=== PATIENT | male | born 1950 | race Caucasian/White ===

== ENCOUNTER 2017-09-04 10:44 | Emergency (ER) | payer OTHER ==
[2017-09-04] MEDS ORDERED: MECLIZINE 25 MG TABLET PO ONE (11:19)
[2017-09-04] MEDS ORDERED: DIAZEPAM 5MG/ML **10ML VIAL IVP ONE ×2 (11:19→12:39)
--- NOTE | 2017-09-04 11:24 | Emergency Department Record ---
History of Present Illness - General Chief Complaint: Dizziness Stated Complaint: DIZZY Time Seen by Provider: 09/04/17 11:04 Source: Patient Mode of Arrival: Ambulatory Limitations: No limitations - History of Present Illness Initial Comments: The patient is here due to having "dizziness" for 2 weeks off and on. The symptoms seem to be slowly worsening. The patient describes it as feeling like the room is spinning which is worse with any head movement or standing up. He feels like his balance is off at times and he did fall and bump his head last week. The patient has no hx of similar problems and no trouble with his speech, any focal arm or leg numbness, or weakness or visual changes.The patient has had vague chest pressure for a couple of hours but it has basically gone now. There has been no SOB, HUMA, or sweating. He also has no hx of MCDONALD or CP with exertion. MD Complaint: Dizziness Onset/Timin -: Week(s) Timing: Unsure Description: "Room spinning" History of Same: No History of Trauma: No Severity: Moderate Improves With: Nothing Worsens With: Nothing Associated Symptoms: Denies other symptoms - [place] Coma Scale Eye Response: (4) Open spontaneously Motor Response: (6) Obeys commands Verbal Response: (5) Oriented [place] Total: 15 - Related Data Home Medications Medication Instructions Recorded Confirmed Last Taken Allopurinol [Zyloprim] 300 mg PO ASDIR 09/04/17 09/04/17 09/04/17 Aspirin 325 mg PO DAILY 09/04/17 09/04/17 09/04/17 Indomethacin [Indocin] 50 mg PO TID 09/04/17 09/04/17 09/04/17 Lamotrigine [Lamictal (Blue)] 25 mg PO ASDIR 09/04/17 09/04/17 09/04/17 Multivitamin [Multiple Vitamins] 1 each PO DAILY 09/04/17 09/04/17 09/04/17 Sertraline HCl [Zoloft] 100 mg PO DAILY 09/04/17 09/04/17 09/04/17 Trazodone HCl 150 mg PO QHS 09/04/17 09/04/17 09/04/17 Zolpidem Tartrate [Ambien] 10 mg PO QHS 09/04/17 09/04/17 09/03/17 Previous Rx's Medication Instructions Recorded Diazepam [Valium] 2 mg PO TID #15 tab 09/04/17 Meclizine HCl [Antivert] 25 mg PO Q8H #21 tablet 09/04/17 Allergies Allergy/AdvReac Type Severity Reaction Status Date / Time No Known Drug Allergies Allergy Verified 09/04/17 10:50 Travel Screening - Travel/Exposure Within Last 30 Days Have you traveled within the last 30 days?: No - Travel/Exposure Within Last Year Have you traveled outside the [place] in the last year?: No - Additonal Travel Details Have you been exposed to anyone with a communicable illness?: No - Travel Symptoms Symptom Screening: None Review of Systems Constitutional: Denies: Chills, Fever Eyes: Denies: Eye discharge ENT: Denies: Congestion Respiratory: Denies: Cough, Dyspnea Cardiovascular: Denies: Arrhythmia Past Medical History - SOCIAL HISTORY Smoking Status: Current every day smoker Alcohol Use: None Drug Use: None - RESPIRATORY Hx Respiratory Disorders: No - CARDIOVASCULAR Hx Cardio Disorders: No - NEURO Hx Neuro Disorders: No - GI Hx GI Disorders: No - Hx Genitourinary Disorders: No - ENDOCRINE Hx Endocrine Disorders: No - MUSCULOSKELETAL Hx Musculoskeletal Disorders: Yes Hx Gout: Yes - PSYCH Hx Psych Problems: No - HEMATOLOGY/ONCOLOGY Hx Hematology/Oncology Disorders: No Family Medical History Any Significant Family History?: Yes Hx Dementia: Brother/Sister Hx Heart Disease: Father, Brother/Sister Hx Stroke: Mother Physical Exam - General General Appearance: Alert, Oriented x3, Cooperative, No acute distress - Head Head exam: Atraumatic, Normocephalic, Normal inspection - Eye Eye exam: Normal appearance, PERRL, EOMI, Nystagmus (laterally L>R.) - ENT Throat exam: Normal inspection. negative: Tonsillar erythema, Tonsillar exudate - Neck Neck exam: Normal inspection, Full ROM, Other (Neg for bruits bilaterally.). negative: Lymphadenopathy, Meningismus, Tenderness - Respiratory Respiratory exam: Normal lung sounds bilaterally. negative: Respiratory distress - Cardiovascular Cardiovascular Exam: Regular rate, Normal rhythm, Normal heart sounds - GI/Abdominal GI/Abdominal exam: Soft, Normal bowel sounds. negative: Tenderness - Extremities Extremities exam: Normal inspection, Full ROM, Normal capillary refill. negative: Tenderness - Back Back exam: Reports: Normal inspection - Neurological Neurological exam: Alert, Normal gait, Oriented X3, Reflexes normal, Other (Neg Drift and [place].). negative: Abnormal gait, Altered, Motor sensory deficit Course Vital Signs 09/04/17 10:51 Pulse Rate 74 Respiratory 18 Rate Blood Pressure 128/85 Pulse Ox 97 - Reevaluation(s) Reevaluation #1: The patient is doing better at this time and is 100% improved. He has no dizziness or visual changes and is able to get up and walk with no difficulty. I did discuss the issues with the patient regarding the CP which has now resolved. His cardiac workup has been all normal and the vague discomfort he had has resolved. Due to the etiology being unclear I did recommend hospital admission. The patient is refusing that plan and wants to go home. I did explain to him that the risks of leaving are that the patient could go home and have an CT, stroke, become disabled and even . The patient understands and accepts the risks. He was told to return to the ER at any time for recheck. 09/04/17 13:18 Medical Decision Making - Data Complexity MDM Data: Labs Ordered and/or Reviewed, X-Ray Ordered and/or Reviewed, EKG Ordered and/or Reviewed - Lab Data Result diagrams: 09/04/17 11:10 09/04/17 11:10 - EKG Data -: EKG Interpreted by Me EKG: No Acute Changes, Normal EKG - Radiology Data Radiology results: Report reviewed (Head CT: No acute changes, Chronic changes bilaterally. ) Disposition Disposition: Discharge Clinical Impression: Vertigo Disposition: Home, Self-Care Condition: (2) Stable Instructions: Dizziness (ED) Additional Instructions: Please take the Antivert and Valium as directed and see your family doctor next week for recheck. Return to the ER for any worsening symptoms, or any pain, trouble breathing, shortness of breath or sweating. Prescriptions: Diazepam [Valium] 2 mg PO TID #15 tab Meclizine HCl [Antivert] 25 mg PO Q8H #21 tablet Forms: Patient Portal Access Time of Disposition: 13:23 Quality - Quality Measures Quality Measures: N/A - Blood Pressure Screening View Details: Yes Does Patient Have Any of the Following: No Blood Pressure Classification: Pre-Hypertensive BP Reading Systolic Measurement: 128 Diastolic Measurement: 85 Screening for High Blood Pressure: < Pre-Hypertensive BP, F/U Documented > [ G8950] Pre-Hypertensive Follow-up Interventions: Referral to alternative/primary care provider.
[2017-09-04 11:32] LABS: BASO % 0.5 % (0-6); GRAN % 60.3 % (47-80); HEMATOCRIT 43.9 % (42.0-52.0); HEMOGLOBIN 15.5 gm/dl (14.0-18.0); LYMPH % 31.9 % (16-45); MEAN CELL VOLUME 86.6 fl (81-97); MEAN CORPUSCULAR HEMOGLOBIN 30.6 pg (27-33); MEAN CORPUSCULAR HGB CONC 35.3 g/dl (32-36); MONO % 6.3 % (0-9); PLATELET COUNT 224 K/uL (130-400); RED BLOOD COUNT 5.07 M/uL (4.40-5.70); RED CELL DISTRIBUTION WIDTH 12.5 % (11.5-14.5); WHITE BLOOD COUNT W/O DIFF 6.2 K/uL (4.2-12.2)
[2017-09-04 11:43] LABS: BLOOD UREA NITROGEN 15 mg/dL (8-23); CREATININE 0.8 mg/dL (0.7-1.2); EST GLOMERULAR FILTRATION RATE > 60 mL/min
[2017-09-04 11:46] LABS: GLUCOSE,RANDOM 109 mg/dL (74-109)
[2017-09-04 11:47] LABS: INR 1.1; PARTIAL THROMBOPLASTIN TIME 28.3 SECONDS (24.5-39.1)
[2017-09-04 11:49] LABS: CREATINE PHOSPHOKINASE 114 U/L (39-308)
--- NOTE | 2017-09-05 15:04 | CT SCAN REPORT ---
EXAM: CT OF THE BRAIN HISTORY: DOUBLE VISION. TECHNIQUE: CT of the brain without contrast was obtained. Comparison: None. FINDINGS: The globes are intact. Polyps of the maxillary sinuses bilaterally. No displaced or depressed skull fracture. There is no intra or extraaxial hemorrhage. CT is limited for the evaluation of acute infarct. There is no CT evidence for large or territorial acute infarct. No mass or midline shift. Age indeterminate lacunar infarcts of the basal ganglia bilaterally. Mild diffuse atrophy. Minor small vessel ischemic change. No mass or midline shift. IMPRESSION: MILD ATROPHY AND SMALL VESSEL ISCHEMIC CHANGE. AGE INDETERMINATE LACUNAR INFARCTS OF THE BASAL GANGLIA BILATERALLY. JOB NUMBER: [id number] MTDD
== END 2017-09-04 13:36 | disposition home or self-care (01) ==
LOC: ER 10:44
DX: R42 Dizziness and giddiness (principal); R07.89 Other chest pain; F17.210 Nicotine dependence, cigarettes, uncomplicated
CPT/HCPCS: 99284 ×2; 96374; 82550; 85025; 85730; 85610; 82553; 80048; 84484; 70450; 93005; 93010; J3360

== ENCOUNTER 2018-08-29 11:14 | Emergency (ER) | payer OTHER ==
--- NOTE | 2018-08-29 11:44 | Emergency Department Record ---
History of Present Illness - General Chief complaint: Head Injury Stated complaint: FELL HURT HEAD Time Seen by Provider: 08/29/18 11:26 Source: Patient Mode of Arrival: Ambulatory Limitations: No limitations - History of Present Illness Initial comments: pt fell 4 ft backwards off a planter hitting his head and neck. he had a loc and has amnesia re event. he vomited multiple times and has severe head pain. MD Complaint: Head injury, Fall, Other -: Minutes(s) Mechanism of Injury: Other Location: Occipital Loss of Consciousness: Yes Place: Outdoors Radiation: Neck Severity: Moderate Quality: Aching Consistency: Constant Other Injuries: Neck Context: On Aspirin Associated Symptoms: Amnesia, Confusion, Vomiting - Related Data Home Medications Medication Instructions Recorded Confirmed Last Taken Duloxetine HCl [Cymbalta] 60 mg PO DAILY 08/29/18 08/29/18 Unknown Quetiapine Fumarate [Seroquel] 100 mg PO DAILY 08/29/18 08/29/18 Unknown Ranitidine HCl 150 mg PO DAILY 08/29/18 08/29/18 Unknown Simvastatin 20 mg PO DAILY 08/29/18 08/29/18 Unknown Previous Rx's Medication Instructions Recorded Diazepam [Valium] 2 mg PO TID #15 tab 09/04/17 Meclizine HCl [Antivert] 25 mg PO Q8H #21 tablet 09/04/17 Allergies/Adverse reactions: Allergies Allergy/AdvReac Type Severity Reaction Status Date / Time No Known Drug Allergies Allergy Verified 08/29/18 11:41 Travel Screening - Travel/Exposure Within Last 30 Days Have you traveled within the last 30 days?: No - Travel/Exposure Within Last Year Have you traveled outside the [place] in the last year?: No - Additonal Travel Details Have you been exposed to anyone with a communicable illness?: No - Travel Symptoms Symptom Screening: None Review of Systems Reviewed: No additional complaints except as noted below Constitutional: Reports: As per HPI. Denies: Chills, Fever, Malaise, Night sweats, Weakness, Weight change Eyes: Reports: As per HPI. Denies: Eye discharge, Eye pain, Photophobia, Vision change ENT: Reports: As per HPI. Denies: Congestion, Dental pain, Ear pain, Epistaxis, Hearing loss, Throat pain Respiratory: Reports: As per HPI. Denies: Cough, Dyspnea, Hemoptysis, Stridor, Wheezes Cardiovascular: Reports: As per HPI. Denies: Arrhythmia, Chest pain, Dyspnea on exertion, Edema, Murmurs, Orthopnea, Palpitations, Paroxysmal nocturnal dyspnea, Rheumatic Fever, Syncope Endocrine: Reports: As per HPI. Denies: Fatigue, Heat or cold intolerance, Polydipsia, Polyuria Gastrointestinal: Reports: As per HPI. Denies: Abdominal pain, Constipation, Diarrhea, Hematemesis, Hematochezia, Melena, Nausea, Vomiting Genitourinary: Reports: As per HPI. Denies: Dysuria, Frequency, Hematuria, Incontinence, Retention, Testicular pain, Testicular mass, Urgency Musculoskeletal: Reports: As per HPI. Denies: Arthralgia, Back pain, Gout, Joint swelling, Myalgia, Neck pain Skin: Reports: As per HPI. Denies: Bruising, Change in color, Change in hair/nails, Lesions, Pruritus, Rash Neurological: Reports: As per HPI. Denies: Abnormal gait, Confusion, Headache, Numbness, Paresthesias, Seizure, Tingling, Tremors, Vertigo, Weakness Psychiatric: Reports: As per HPI. Denies: Anxiety, Auditory hallucinations, Depression, Homicidal thoughts, Suicidal thoughts, Visual hallucinations Hematological/Lymphatic: Reports: As per HPI. Denies: Anemia, Blood Clots, Easy bleeding, Easy bruising, Swollen glands Past Medical History - SOCIAL HISTORY Smoking Status: Current every day smoker Alcohol Use: None Drug Use: None - RESPIRATORY Hx Respiratory Disorders: No - CARDIOVASCULAR Hx Cardio Disorders: No - NEURO Hx Neuro Disorders: No - GI Hx GI Disorders: No - Hx Genitourinary Disorders: No - ENDOCRINE Hx Endocrine Disorders: No - MUSCULOSKELETAL Hx Musculoskeletal Disorders: Yes Hx Gout: Yes - PSYCH Hx Psych Problems: No - HEMATOLOGY/ONCOLOGY Hx Hematology/Oncology Disorders: No Family Medical History Any Significant Family History?: No Hx Dementia: Brother/Sister Hx Heart Disease: Father, Brother/Sister Hx Stroke: Mother Physical Exam - General General Appearance: Alert, Oriented x3, Cooperative, Mild distress - Head Head exam: Normal inspection Head exam detail: Contusion, General tenderness - Eye Eye exam: Normal appearance, PERRL, EOMI Pupils: Normal accommodation - ENT ENT exam: Normal exam, Mucous membranes moist, Normal external ear exam, Normal orophraynx, TM's normal bilaterally Ear exam: Normal external inspection. negative: External canal tenderness Nasal Exam: Normal inspection. negative: Discharge, Sinus tenderness Mouth exam: Normal external inspection, Tongue normal Teeth exam: Normal inspection. negative: Dental caries Throat exam: Normal inspection. negative: Tonsillar erythema, Tonsillar exudate - Neck Neck exam: Tenderness. negative: Full ROM - Respiratory Respiratory exam: Normal lung sounds bilaterally. negative: Respiratory distress - Cardiovascular Cardiovascular Exam: Regular rate, Normal rhythm, Normal heart sounds - GI/Abdominal GI/Abdominal exam: Soft, Normal bowel sounds. negative: Tenderness - Rectal Rectal exam: Deferred - exam: Deferred - Extremities Extremities exam: Normal inspection, Full ROM, Normal capillary refill. negative: Tenderness - Back Back exam: Reports: Normal inspection, Full ROM. Denies: Muscle spasm, Rash noted, Tenderness - Neurological Neurological exam: Alert, Normal gait, Oriented X3, Reflexes normal - Psychiatric Psychiatric exam: Normal affect, Normal mood - Skin Skin exam: Dry, Intact, Normal color, Warm Course Vital Signs 08/29/18 08/29/18 11:17 11:27 Temperature 98.8 F 98.8 F Pulse Rate 102 H 102 H Respiratory 16 18 Rate Blood Pressure 152/89 152/89 Pulse Ox 96 96 - Reevaluation(s) Reevaluation #1: 08/29/18 12:49 cts neg for acute Disposition Disposition: Discharge Clinical Impression: Concussion Qualifiers: Encounter type: initial encounter Loss of consciousness presence/duration: with LOC of 30 min or less Qualified Code(s): S06.0X1A - Concussion with loss of consciousness of 30 minutes or less, initial encounter Disposition: Home, Self-Care Condition: (1) Good Instructions: Concussion (ED) Additional Instructions: follow up with family doctor on friday. return sooner if worse. tylenol or motrin for headache Forms: Patient Portal Access Quality - Quality Measures Quality Measures: N/A - Blood Pressure Screening Does Patient Have Any of the Following: No Blood Pressure Classification: Pre-Hypertensive BP Reading Systolic Measurement: 152 Diastolic Measurement: 89 Screening for High Blood Pressure: < Pre-Hypertensive BP, F/U Documented > [G8950] Pre-Hypertensive Follow-up Interventions: Follow-up with rescreen every year.
--- NOTE | 2018-09-01 21:46 | CT SCAN REPORT ---
EXAM: CT SCAN HEAD WO CONTRAST HISTORY: PATIENT FELL TODAY WITH PAIN BACK OF HEAD AND NECK. TECHNIQUE: Axial CT scan of the head performed without IV contrast. COMPARISON: Head CT 09/04/2017. ENCOUNTER: Initial. FINDINGS: No definite acute intracranial hemorrhage identified. No focal mass effect or midline shift evident. Mild generalized atrophy. Small chronic lacunar infarcts in the basal ganglia, as previously noted. No definite acute infarct or intracranial mass lesion seen. No definite calvarial fracture evident. Mild membrane thickening inferiorly in both maxillary antra. IMPRESSION: 1. NO DEFINITE ACUTE INTRACRANIAL HEMORRHAGE OR FOCAL MASS EFFECT IDENTIFIED. 2. MILD GENERALIZED ATROPHY WITH A COUPLE OF SMALL CHRONIC LACUNAR INFARCTS IN THE BASAL GANGLIA. JOB NUMBER: [id number] MTDD
--- NOTE | 2018-09-01 21:50 | CT SCAN REPORT ---
EXAM: CT SCAN CERVICAL SPINE WO CONTRAST HISTORY: PATIENT FELL WITH NECK PAIN. TECHNIQUE: Axial CT scan of the entire cervical spine performed without IV contrast. COMPARISON: No prior cervical CT but comparison is made with a prior neck CT dated 08/23/2011. FINDINGS: No apical pneumothorax evident. No definite fracture or prevertebral soft tissue swelling seen in the cervical spine. There is advanced degenerative change at the odontoid-anterior arch of C1 articulation. Exuberant hypertrophic spurring along the anterior aspect of multiple cervical interspaces. 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 IMPRESSION: 1. NO DEFINITE FRACTURE OR PREVERTEBRAL SOFT TISSUE SWELLING SEEN IN THE CERVICAL SPINE. 2. MULTILEVEL DEGENERATIVE CHANGE IN THE CERVICAL SPINE. J[facility]BER: [id number] [facility]
== END 2018-08-29 13:05 | disposition home or self-care (01) ==
LOC: ER 11:14
DX: S06.0X1A Concussion with loss of consciousness of 30 minutes or less, initial encounter (principal); R41.0 Disorientation, unspecified; R11.10 Vomiting, unspecified; M54.2 Cervicalgia; F17.210 Nicotine dependence, cigarettes, uncomplicated
CPT/HCPCS: 70450; 72125; 99283; 99284